=== PATIENT | female | born 1945 | race Caucasian/White ===

== ENCOUNTER → 2021-03-15 | Outpatient (CLI) | payer MEDICARE, BC ==
[~2021-03-15] MED LIST: CASIRIVIMAB/IMDEVIMAB 1200/1200mg in IV NS TV=250 ML IV ONE
[2021-03-15 12:29] VITALS: BP 150/92
[2021-03-15 14:03] VITALS: BP 144/80
== END ==
LOC: LAB 11:29
PROVIDERS: ATTEND Specialist
DX: Z23 Encounter for immunization (principal); U07.1 COVID-19
CPT/HCPCS: M0243; Q0243

== ENCOUNTER → 2021-05-22 | Outpatient (CLI) | payer MEDICARE, BC ==
[2021-03-15 14:03] VITALS: BP 144/80
--- NOTE | 2021-05-22 11:39 | RAD ---
EXAM: Abdomen, single view. HISTORY: Constipation. COMPARISON: None. FINDINGS: A frontal view of the abdomen is obtained. There is moderate stool throughout the colon. Th ere are cholecystectomy clips. There are right renal stones. IMPRESSION: 1. Moderate colonic stool consistent with reported constipation. 2. Right nephrolithiasis. Electronically signed by: Danielle Scott MD (05/22/2021 11:37 AM) [id number]
== END ==
LOC: RAD 11:19
PROVIDERS: ATTEND Specialist
DX: K59.00 Constipation, unspecified (principal); N20.0 Calculus of kidney
CPT/HCPCS: 74018

== ENCOUNTER → 2022-03-13 | Outpatient (CLI) | payer MEDICARE, BC ==
[2021-03-15 14:03] VITALS: BP 144/80
--- NOTE | 2022-03-13 17:54 | RAD ---
INDICATION: Reason: LT LEG PAIN / Spl. Instructions: / History: COMPARISON: None. TECHNIQUE: Grayscale, color and doppler ultrasound images were obtained of the left lower extremity v enous vasculature. LEFT: No thrombus identified in the common femoral vein, femoral vein, popliteal vein or visualized calf ve ins. IMPRESSION: * No thrombus identified in deep venous system of the left lower extremity. Electronically signed by: Wale Nguyen MD (03/13/2022 5:52 PM) [id number]
== END ==
LOC: US 17:17
PROVIDERS: ATTEND Physician Assistant
DX: M79.605 Pain in left leg (principal)
CPT/HCPCS: 93971

== ENCOUNTER → 2022-04-01 | Outpatient (CLI) | payer MEDICARE, BC ==
[2021-03-15 14:03] VITALS: BP 144/80
--- NOTE | 2022-04-01 16:05 | RAD ---
EXAMINATION: US DPLX VENOUS EXTREMITY LOWER LT (LOWER EXTREMITY VENOUS ULTRASOUND) CLINICAL HISTORY: Left leg pain. History of DVT. TECHNIQUE: Sonographic grayscale images obtained of the left lower extremity deep venous system with color flow Doppler, compression, and augmentation techniques as indicated. Images obtained and store d in a permanent archive. COMPARISON: 03/13/2022 FINDINGS: No evidence of absent flow or incompressibility within the common femoral vein, femoral vein, or popl iteal vein. Visualized calf veins appear patent on limited evaluation. IMPRESSION: No evidence of left lower extremity DVT. Electronically signed by: Abdirahman Dimas DO (04/01/2022 4:03 PM) MICHELLE
== END ==
LOC: US 15:33
PROVIDERS: ATTEND Specialist
DX: M79.605 Pain in left leg (principal)
CPT/HCPCS: 93971

== ENCOUNTER → 2022-04-04 | Outpatient (CLI) | payer MEDICARE, BC ==
[2021-03-15 14:03] VITALS: BP 144/80
--- NOTE | 2022-04-04 14:58 | RAD ---
EXAM: Left hip, 2 views; lumbar spine, 3 views. HISTORY: Pain. COMPARISON: None. FINDINGS: Left hip: 2 views of the left hip are obtained. There is marginal acetabular spurring. There is no fr acture, dislocation or subluxation. Lumbar spine: There is a severe wedge compression fracture of L1 with near complete loss of vertebral body height and slight retropulsion of the cortex into the central canal. This is chronic in appeara nce. There is a mild to moderate compression fracture of L3, of uncertain chronicity. No retropulsion of the cortex is seen. There is a mild chronic appearing compression fracture of T8. There is multil evel endplate remodeling. There are multiple endplate Schmorl's nodes. There is disc space narrowing and facet arthropathy predominantly at the lumbosacral junction. There are cholecystectomy clips. IMPRESSION: 1. Mild to moderate L3 compression fracture, of uncertain chronicity. Correlate for pain in this loca tion. 2. Chronic appearing severe L1 and mild T8 compression fractures. 3. Multilevel degenerative change involving the spine, primarily at the lumbosacral junction. 4. Mild left hip osteoarthritis. Electronically signed by: Danielle Scott MD (04/04/2022 2:56 PM) [id number]
== END ==
LOC: RAD 14:19
PROVIDERS: ATTEND Specialist
DX: S32.010A Wedge compression fracture of first lumbar vertebra, initial encounter for closed fracture (principal); S32.038A Other fracture of third lumbar vertebra, initial encounter for closed fracture; S22.068A Other fracture of T7-T8 thoracic vertebra, initial encounter for closed fracture; M47.816 Spondylosis without myelopathy or radiculopathy, lumbar region; M48.061 Spinal stenosis, lumbar region without neurogenic claudication; M16.12 Unilateral primary osteoarthritis, left hip; M51.46 Schmorl's nodes, lumbar region; Z90.49 Acquired absence of other specified parts of digestive tract; X58.XXXA Exposure to other specified factors, initial encounter; Y93.89 Activity, other specified; Y92.89 Other specified places as the place of occurrence of the external cause; Y99.8 Other external cause status
CPT/HCPCS: 72100; 73502